=== PATIENT | male | born 1980 ===

== ENCOUNTER 2021-02-08 11:18 | Emergency (ER) | payer OTHER ==
[~2021-02-08] VITALS: Ht 175.3 cm; Wt 72.6 kg
== END 2021-02-08 14:52 | disposition home or self-care (01) ==
LOC: ER 11:18
DX: S60.211A Contusion of right wrist, initial encounter (principal); S60.221A Contusion of right hand, initial encounter; W18.39XA Other fall on same level, initial encounter; Y93.89 Activity, other specified; Y92.9 Unspecified place or not applicable

== ENCOUNTER 2021-03-24 07:53 | Outpatient (CLI) | payer OTHER | END 2021-03-24 08:01 | disposition home or self-care (01) | LOC: RAD 07:53 | PROVIDERS: ATTEND Orthopaedic Surgery Hand Surgery | DX: M25.531 Pain in right wrist (principal) ==